=== PATIENT | female | born 1970 | race Two or more races ===

== ENCOUNTER 2021-05-05 17:04 | Emergency (ER) | payer SELFPAY ==
[2021-05-05] MEDS ORDERED: Sodium Chloride 0.9% 1,000 ML IV ONE (17:22)
--- NOTE | 2021-05-05 17:24 | PCM.EKG ---
#1 Interpretation EKG Date: 05/05/21 Time: 17:12 Rhythm: NSR Rate (Beats/Min): 67 ST-T: Other (Elevation in 2 3 aVF V5 V6 does not meet STEMI criteria)
--- NOTE | 2021-05-05 17:46 | EDM.PDOC ---
ED HPI GENERAL MEDICAL PROBLEM - General Chief Complaint: Respiratory Problem Stated Complaint: COVID COMPLICATIONS Time Seen by Provider: 05/05/21 17:08 Source of Information: Reports: Patient History Limitations: Reports: No Limitations - History of Present Illness INITIAL COMMENTS - FREE TEXT/NARRATIVE: HISTORY AND PHYSICAL: History of present illness: Patient is a 51-year-old female who presents to the emergency room from the clinic with concerns of shortness of breath. States she feels lightheaded and dizzy when she moves too quickly. Patient states she has had COVID-19 for the past 7 to 10 days and is currently out of quarantine. Symptoms have persisted and she was attempting to be evaluated at the walk-in clinic. They were concerned as her oxygen saturation was 92% on room air. Recommended she come to the emergency room. Patient denies any fever, chills, headache, change in vision, syncope or near syncope. Denies any chest pain, back pain, abdominal pain, nausea, vomiting, diarrhea, constipation or dysuria. Has not noted any blood in urine or stool. Patient has not been eating and drinking appropriately. Review of systems: As per history of present illness and below otherwise all systems reviewed and negative. Past medical history: As per history of present illness and as reviewed below otherwise noncontributory. Surgical history: As per history of present illness and as reviewed below otherwise noncontributory. Social history: See social history for further information Family history: As per history of present illness and as reviewed below otherwise noncontributory. Physical exam: General: Well developed and well nourished. Alert and orientated x 3. Nontoxic in appearance and in no acute distress. Vital signs are stable and have been reviewed by me. Nursing notes were reviewed. HEENT: Atraumatic, normocephalic, pupils equal and reactive bilaterally, negative for conjunctival pallor or scleral icterus, mucous membranes moist, TMs normal bilaterally, throat clear, neck supple, nontender, trachea midline. No drooling or trismus noted. No meningeal signs. No hot potato voice noted. Lungs: Clear to auscultation bilaterally. No wheezes, rales, or rhonchi. Chest nontender. Normal work of breathing, no accessory muscles used. Heart: S1S2, regular rate and rhythm without overt murmur, gallops, or rubs. No JVD. No peripheral edema Abdomen: Soft, nondistended, nontender. Normoactive bowel sounds. Negative for masses or costovertebral tenderness. Skin: Intact, warm, dry. No lesions or rashes noted. Hematologic: No petechiae or purpra. Mucosa appropriate color and normal nail bed color and refill. Extremities: Atraumatic, moves all extremities per self without difficulty or deficits, negative for cords or calf pain. Neurovascular unremarkable. Neuro: Awake, alert, oriented. Cranial nerves II through XII unremarkable. Cerebellum unremarkable. Motor and sensory unremarkable throughout. Exam nonfocal. Psychiatric: Mood and affect are appropriate. Normal thought process. Answering questions appropriately. Please note that the patient was seen and evaluated during the 2019 SARS-CoV-2 novel coronavirus pandemic period. Community viral transmission is ongoing at time of this encounter and the emergency department is operating under pandemic response procedures. Medical Decision Making: Patient is a 51-year-old female who presents to the emergency room with complaints of shortness of breath. She was diagnosed with COVID-19 approximately 7 to 10 days ago. She states she does feel somewhat lightheaded and dizzy when she stands up quickly. Was sent to the emergency room by walk-in clinic. We will do basic lab work and a chest x-ray at this time. Blood work shows no acute or concerning findings. Chest x-ray shows nonspecific mild patchy infiltrates in the lower lungs bilaterally, possibly representing an infectious/inflammatory process such as pneumonia, including possible COVID-19. No pleural effusions. Unremarkable cardiac contour. Normal bony structures. I have talked with the patient about today's findings, in addition to providing specific details for plan of care. We discussed antibiotic and steroid, she would like to move forward with this. I do agree as she has had symptoms for over 7 days we will treat for possible bacterial related findings. Reassessment at the time of disposition demonstrates that the patient is in no acute distress. The patient is stable for discharge, counseling was provided and we discussed in great detail signs and symptoms that would prompt them to return to the Emergency Department. Medication, follow up and supportive care measures were reviewed and discussed. Voices understanding and is agreeable to plan of care. Denies any further questions or concerns at this time. Diagnostics: CBC, CMP, EKG, CXR Therapeutics: IV fluids Prescription: Zpak, Prednisone Impression: COVID-19 Pneumonia Plan: 1. You were evaluated today on an emergent basis. Your xray shows possible early pneumonia. Due to the longevity of your COVID-19 diagnosis same the treat with an antibiotic at this time. Your lab work is otherwise unremarkable and your vital signs are stable. You do not require admission at this time. 2. You can alternate Tylenol and ibuprofen as needed for pain and fever management. 3. We encourage you to follow up with your primary care provider and/or recommended specialist in the next few days for re-evaluation and further care/management. 4. If your symptoms should worsen, new symptoms develop or any of the signs and symptoms we discussed should arise please return to the emergency room or call 911 (if needed). Definitive disposition and diagnosis as appropriate pending reevaluation and review of above. - Related Data Allergies Allergy/AdvReac Type Severity Reaction Status Date / Time No Known Allergies Allergy Verified 05/05/21 17:14 Home Meds: Home Meds Azithromycin [Zithromax] 1 dose PO DAILY 5 Days #6 tab 05/05/21 [Rx] predniSONE [Prednisone] 40 mg PO DAILY 4 Days #8 tablet 05/05/21 [Rx] Past Medical History Cardiovascular History: Reports: Heart Murmur - Infectious Disease History Infectious Disease History: Reports: Novel Coronavirus Social & Family History - Tobacco Use Tobacco Use Status *Q: Never Tobacco User - Recreational Drug Use Recreational Drug Use: No ED ROS GENERAL - Review of Systems Review Of Systems: Comprehensive ROS is negative, except as noted in HPI. ED EXAM, GENERAL - Physical Exam Exam: See Below (See dictation) Course - Vital Signs Last Recorded V/S: Last Vital Signs Temp 97.1 F 05/05/21 18:44 Pulse 65 05/05/21 18:44 Resp 18 05/05/21 18:44 BP 119/70 05/05/21 18:44 Pulse Ox 97 05/05/21 18:44 Orthostatic Blood Pressure [ 118/67 Standing] Orthostatic Blood Pressure [ 120/60 Sitting] Orthostatic Blood Pressure [ 123/64 Supine] - Orders/Labs/Meds Orders: Active Orders 24 hr Category Date Time Status Orthostatic Vital Signs [RC] ASDIRECTED Care 05/05/21 17:24 Active Labs: Laboratory Tests 05/05/21 05/05/21 Range/Units 17:30 17:30 WBC 5.82 (4.0-11.0) K/uL RBC 5.45 (4.30-5.90) M/uL Hgb 11.3 L (12.0-16.0) g/dL Hct 37.1 (36.0-46.0) % MCV 68.1 L (80.0-98.0) fL MCH 20.7 L (27.0-32.0) pg MCHC 30.5 L (31.0-37.0) g/dL RDW Std Deviation 35.3 (28.0-62.0) fl RDW Coeff of Joshua 14 (11.0-15.0) % Plt Count 342 (150-400) K/uL MPV 9.00 (7.40-12.00) fL Neut % (Auto) 64.3 (48.0-80.0) % Lymph % (Auto) 26.1 (16.0-40.0) % [place] % (Auto) 8.8 (0.0-15.0) % Eos % (Auto) 0.5 (0.0-7.0) % Baso % (Auto) 0.3 (0.0-1.5) % Neut # (Auto) 3.7 (1.4-5.7) K/uL Lymph # (Auto) 1.5 (0.6-2.4) K/uL [place] # (Auto) 0.5 (0.0-0.8) K/uL Eos # (Auto) 0.0 (0.0-0.7) K/uL Baso # (Auto) 0.0 (0.0-0.1) K/uL Nucleated RBC % 0.0 /100WBC Nucleated RBCs # 0 K/uL Sodium 142 (136-145) mmol/L Potassium 4.1 (3.5-5.1) mmol/L Chloride 105 (98-107) mmol/L Carbon Dioxide 27.9 (21.0-32.0) mmol/L BUN 11 (7.0-18.0) mg/dL Creatinine 0.9 (0.6-1.0) mg/dL Est Cr Clr Drug Dosing 58.49 mL/min Estimated GFR (MDRD) > 60.0 ml/min Glucose 112 H (74-106) mg/dL Calcium 8.3 L (8.5-10.1) mg/dL Total Bilirubin 0.3 (0.2-1.0) mg/dL AST 30 (15-37) IU/L ALT 27 (14-63) IU/L Alkaline Phosphatase 73 (46-116) U/L Troponin I < 0.050 (0.000-0.056) ng/mL Total Protein 8.2 (6.4-8.2) g/dL Albumin 3.1 L (3.4-5.0) g/dL Globulin 5.1 H (2.6-4.0) g/dL Albumin/Globulin Ratio 0.6 L (0.9-1.6) Meds: Medications Discontinued Medications Generic Name Dose Route Start Last Admin Trade Name Freq PRN Reason Stop Dose Admin Sodium Chloride 1,000 mls @ 999 mls/hr 05/05/21 17:22 05/05/21 17:31 Normal Saline IV 05/05/21 18:22 999 mls/hr STAT ONE Administration Departure - Departure Time of Disposition: 19:12 Disposition: Home, Self-Care 01 Clinical Impression: Pneumonia due to COVID-19 virus - Discharge Information Prescriptions: predniSONE [Prednisone] 40 mg PO DAILY 4 Days #8 tablet Azithromycin [Zithromax] 1 dose PO DAILY 5 Days #6 tab Instructions: 10 Things You Can Do to Manage Your COVID-19 Symptoms at Home - [facility] (01/03/2021) Referrals: Elizabeth Robert DO [Primary Care Provider] - Forms: ED Department Discharge Additional Instructions: The following information is given to patients seen in the emergency department who are being discharged to home. This information is to outline your options for follow-up care. We provide all patients seen in our emergency department with a follow-up referral. The need for follow-up, as well as the timing and circumstances, are variable depending upon the specifics of your emergency department visit. If you don't have a primary care physician on staff, we will provide you with a referral. We always advise you to contact your personal physician following an emergency department visit to inform them of the circumstance of the visit and for follow-up with them and/or the need for any referrals to a consulting specialist. The emergency department will also refer you to a specialist when appropriate. This referral assures that you have the opportunity for follow-up care with a specialist. All of these measure are taken in an effort to provide you with optimal care, which includes your follow-up. Under all circumstances we always encourage you to contact your private physician who remains a resource for coordinating your care. When calling for follow-up care, please make the office aware that this follow-up is from your recent emergency room visit. If for any reason you are refused follow-up, please contact the [facility] at and asked to speak to the emergency department charge nurse. [facility] [address] [place] [id number] [id number] Thank you for choosing the [facility] emergency department in [place] for your medical needs today. It was a pleasure caring for you. Today you were seen in the emergency department for shortness of breath with COVID-19 Your prescription was electronically sent to: [place] [facility] 1. You were evaluated today on an emergent basis. Your xray shows possible early pneumonia. Due to the longevity of your COVID-19 diagnosis same the treat with an antibiotic at this time. Your lab work is otherwise unremarkable and your vital signs are stable. You do not require admission at this time. 2. You can alternate Tylenol and ibuprofen as needed for pain and fever management. 3. We encourage you to follow up with your primary care provider and/or recommended specialist in the next few days for re-evaluation and further care/management. 4. If your symptoms should worsen, new symptoms develop or any of the signs and symptoms we discussed should arise please return to the emergency room or call 911 (if needed). Sepsis Event Note (ED) - Evaluation Sepsis Screening Result: No Definite Risk - Focused Exam Vital Signs: Vital Signs Temp Pulse Resp BP Pulse Ox 05/05/21 18:44 97.1 F 65 18 119/70 97 05/05/21 17:51 97.7 F 70 18 118/67 97 05/05/21 17:15 97.6 F 82 16 128/70 95 - My Orders Last 24 Hours: My Active Orders 05/05/21 17:24 Orthostatic Vital Signs [RC] ASDIRECTED - Assessment/Plan Last 24 Hours: My Active Orders 05/05/21 17:24 Orthostatic Vital Signs [RC] ASDIRECTED
[2021-05-05 18:12] LABS: BLOOD UREA NITROGEN,BUN 11 mg/dL (7.0-18.0); CARBON DIOXIDE,CO2 27.9 mmol/L (21.0-32.0); CHLORIDE,CL 105 mmol/L (98-107); GLUCOSE RANDOM 112 mg/dL (74-106); POTASSIUM,K 4.1 mmol/L (3.5-5.1); SODIUM,NA 142 mmol/L (136-145)
--- NOTE | 2021-05-05 19:11 | CR ---
INDICATION: COVID. Shortness of breath. COMPARISON: None. FINDINGS/IMPRESSION: Upright portable AP chest radiograph. Nonspecific mild patchy infiltrates in the lower lungs bilaterally, possibly representing an infectious/inflammatory process such as pneumonia, including possible COVID-19. No pleural effusions. Unremarkable cardiac contour. Normal bony structures. Dictated by Tu Garcia MD @ 05/05/2021 7:07:59 PM Dictated by: Tu Garcia MD @ 05/05/2021 19:09:08 (Electronically Signed)
== END 2021-05-05 19:42 | disposition home or self-care (01) ==
LOC: MW.ED 17:04
DX: U07.1 COVID-19 (principal); J12.82 Pneumonia due to coronavirus disease 2019
CPT/HCPCS: 36415; 71045; 80053; 84484; 85025; 93005; 99285; J7030